=== PATIENT | female | born 1980 | race Caucasian/White ===

== ENCOUNTER 2017-09-15 16:40 | Emergency (ER) | payer MEDICAID ==
[2017-09-15] MEDS ORDERED: DIPHENHYDRAMINE 25 MG CAP (22:11)
[2017-09-15] MEDS: DIPHENHYDRAMINE 25 MG CAP PO (22:12)
== END 2017-09-15 22:14 | disposition home or self-care (01) ==
LOC: FTE 16:40
DX: H10.13 Acute atopic conjunctivitis, bilateral (principal); J30.9 Allergic rhinitis, unspecified
CPT/HCPCS: 99283; Z7610